=== PATIENT | male | born 1970 | race Caucasian/White ===

== ENCOUNTER 2022-10-19 23:10 | Inpatient (IN) ==
--- NOTE | 2022-10-19 23:50 | ED.PDOC ---
General ED Provider: Dr. ABRIL PENN Chief Complaint: Non-specific Complaint Stated Complaint: he notes cough and congestion and fever since yesterday Time Seen by Provider: 10/19/22 23:43 Mode of Arrival: Walk-In Information Source: Patient Exam Limitations: No limitations Primary Care Provider: JASON DEVRIES Nursing and Triage Documentation Reviewed and Agree: Yes Does patient meet sepsis criteria?: No System Inflammatory Response Syndrome: Not Applicable Sepsis Protocol: For patient's 13 years and over: Temp is 96.8 and below OR 101 and greater Pulse >90 BPM Resp >20/minute Acutely Altered Mental Status Are patient's symptoms suggestive of a new infection, such as: -Pneumonia -Skin, Soft Tissue -Endocarditis -UTI -Bone, Joint Infection -Implantable Device -Acute Abdominal Infection -Wound Infection -Meningitis -Blood Stream Catheter Infection -Unknown Respiratory Complaint Exam Respiratory Complaint/Exam Onset/Duration: 24hs Symptoms Are: Still present Timing: Intermittent Initial Severity: Mild Current Severity: Mild Location: Chest Character: Reports Non-productive cough Aggravating: Reports URI Alleviating: Reports None Associated Signs and Symptoms: Reports Fever, Chills, URI and Nasal congestion Home Oxygen Use: No Recent Stress Test: No Recent Echo/LV Function: No Current Antibiotic Use: No Current Asthma Medication Use: No Respiratory Distress: None Inadequate Respiratory Effort: No Dysphagia Present: No Stridor Present: No JVD Present: No Accessory Muscle Use: No Retractions: Not Present Diminished Breath Sounds: No Sinus Tenderness: None Grunting Respirations: No Kussmaul Respirations: No Differential Diagnoses: URI Review of Systems Review Of Systems Constitutional: Reports Chills and Fever Eyes: Reports No symptoms Ears, Nose, Mouth, Throat: Reports No symptoms Respiratory: Reports Cough Cardiac: Reports No symptoms GI: Reports No symptoms : Reports No symptoms Musculoskeletal: Reports No symptoms Skin: Reports No symptoms Neurological: Reports No symptoms Endocrine: Reports No symptoms Hematologic/Lymphatic: Reports No symptoms All Other Systems: Reviewed and Negative Physical Exam Physical Exam Appearance: Reports Well-appearing Ill-appearing: None Pain Distress: None Eyes: Reports KRISSY, EOMI and Conjunctiva clear ENT: Reports Ears normal, Nose normal and Oropharynx normal Neck: Supple Respiratory: Reports Airway patent, Breath sounds clear and Breath sounds equal Cardiovascular: Reports RRR, Pulses normal, No rub and No murmur GI/: Reports Soft, Nontender, No masses and Bowel sounds normal Musculoskeletal: Reports Normal strength, ROM intact, No edema and No calf tenderness Skin: Reports Warm, Dry and Normal color Neurological: Reports Sensation intact, Motor intact, Reflexes intact, Cranial nerves intact, Alert and Oriented Psychiatric: Reports Affect appropriate and Mood appropriate Interpretation Radiology Interpretation Radiology Interpretation By: Radiologist Radiology Results: Positive Exam Interpreted: CXR Critical Care Note Critical Care Note Total Critical Care Time (mins): 0 Course Course Hematology/Chemistry: 10/20/22 00:15 10/20/22 00:15 Orders, Labs, Meds: Lab Review 10/19/22 10/19/22 10/20/22 23:35 23:35 00:15 WBC 8.79 RBC 4.63 L Hgb 14.7 Hct 43.4 MCV 93.7 MCH 31.7 H MCHC 33.9 RDW Coeff of Emmy 13.1 Plt Count 187 Immature Gran % (Auto) 0.2 Neut % (Auto) 69.0 Lymph % (Auto) 20.3 Andrew % (Auto) 10.0 Eos % (Auto) 0.3 Baso % (Auto) 0.2 Neut # (Auto) 6.1 Lymph # (Auto) 1.8 Andrew # (Auto) 0.9 Eos # (Auto) 0.0 Baso # (Auto) 0.0 Immature Gran # (Auto) 0.0 Sodium Potassium Chloride Carbon Dioxide Anion Gap BUN Creatinine Estimated GFR (MDRD) BUN/Creatinine Ratio Glucose Lactic Acid Calcium Total Bilirubin AST ALT Alkaline Phosphatase Total Protein Albumin Globulin Albumin/Globulin Ratio Influ A Molecular Assay Positive by naat H Influ B Molecular Assay Negative by naat SARS CoV-2 RNA Rapid CHELSEA Negative 10/20/22 10/20/22 00:15 00:15 WBC RBC Hgb Hct MCV MCH MCHC RDW Coeff of Emmy Plt Count Immature Gran % (Auto) Neut % (Auto) Lymph % (Auto) Andrew % (Auto) Eos % (Auto) Baso % (Auto) Neut # (Auto) Lymph # (Auto) Andrew # (Auto) Eos # (Auto) Baso # (Auto) Immature Gran # (Auto) Sodium 139.4 Potassium 3.90 Chloride 105.2 Carbon Dioxide 29.0 Anion Gap 9.10 BUN 11.3 Creatinine 0.97 Estimated GFR (MDRD) 82.00 BUN/Creatinine Ratio 11.64 Glucose 115.8 H Lactic Acid 1.12 Calcium 9.08 Total Bilirubin 0.44 AST 28.1 ALT 21.5 Alkaline Phosphatase 84.1 Total Protein 7.52 Albumin 4.53 Globulin 2.99 Albumin/Globulin Ratio 1.51 Influ A Molecular Assay Influ B Molecular Assay SARS CoV-2 RNA Rapid CHELSEA Orders Category Date Time Status ED IV/MEDIPORT/POWERPORT .ONCE EMERGENCY 10/20/22 00:21 Active BLOOD CULTURE (ED ONLY) Stat LAB 10/20/22 00:15 Received CBC W/ AUTO DIFF Stat LAB 10/20/22 00:15 Completed COMPREHENSIVE METABOLIC PANEL Stat LAB 10/20/22 00:15 Completed LACTIC ACID Stat LAB 10/20/22 00:15 Completed MOLECULAR FLU A & B [FLU A/B MOLECULAR] Stat LAB 10/19/22 23:35 Completed PROCALCITONIN Stat LAB 10/20/22 00:15 Received SARS COV-2 RNA RAPID CHELSEA Stat LAB 10/19/22 23:35 Completed 0.9 % Sodium Chloride [Saline Flush] MEDS 10/20/22 00:21 Active 1 syr IVF PRN PRN Ceftriaxone/D5w 1 gm Premix [Rocephin 1 gm/50 ml D5w] MEDS 10/20/22 00:22 Active 1 gm in 50 ml IV ONCE Oseltamivir Phosphate Capsule [Tamiflu Capsule] MEDS 10/20/22 00:27 Disc ontinued 75 mg PO ONCE ONE Sodium Chloride 0.9% [Sodium Chloride] 500 ml MEDS 10/20/22 00:21 Active IV 70 mls/hr CXR [CHEST, 2 VIEWS PA & LAT] Stat RADS 10/19/22 23:43 Completed Medications Generic Name Dose Route Start Last Admin Trade Name Freq PRN Reason Stop Dose Admin Sodium Chloride 500 mls @ 70 mls/hr 10/20/22 00:21 10/20/22 00:41 Sodium Chloride IV 10/20/22 07:29 70 mls/hr .Q7H9M STA Administration CEFTRIAXONE/D5W 1 GM PREMIX 1 gm in 50 mls @ 75 mls/hr 10/20/22 00:22 10/20/22 00:36 Rocephin 1 Gm/50 Ml D5w IV 10/20/22 01:01 75 mls/hr ONCE STA Administration Sodium Chloride 1 syr 10/20/22 00:21 0.9% Sodium Chloride 10 Ml Disp.Syrin IVF PRN PRN To flush IV Discontinued Medications Generic Name Dose Route Start Last Admin Trade Name Freq PRN Reason Stop Dose Admin Oseltamivir Phosphate 75 mg 10/20/22 00:27 10/20/22 00:40 Oseltamivir Phosphate 75 Mg Capsule PO 10/20/22 00:28 75 mg ONCE ONE Administration Vital Signs: Temp Pulse Resp BP Pulse Ox 10/19/22 23:11 100.2 F 105 H 20 138/80 96 Discharge Plan Discharge Patient Disposition: ADMITTED INPATIENT Discharge Problem: Community acquired bacterial pneumonia, Influenza A Prescriptions: No Action Unobtainable Did you review [place] TATTOO ARTIST?: Not Applicable ED Provider: ABRIL MERCHANT Condition: Good Physician Progress Note: []
[2022-10-19 23:51] LABS: MOLECULAR FLU A POSITIVE BY NAAT (NEGATIVE)
[2022-10-19 23:53] LABS: MOLECULAR FLU B NEGATIVE BY NAAT (NEGATIVE)
--- NOTE | 2022-10-20 00:03 | DI ---
EXAM: PA and lateral chest. HISTORY: Cough. Fever. FINDINGS: The bones are unremarkable. The cardiac silhouette is enlarged. The pulmonary vasculatur e is within normal limits. The costophrenic angles are clear. There are left lower lobe infiltrates , consistent with pneumonia. Impression: Left lower lobe pneumonia. Cardiomegaly.
[2022-10-20 00:09] LABS: SARS COV-2 RNA RAPID NAAT NEGATIVE (NEGATIVE)
[2022-10-20] MEDS ORDERED: SODIUM CHLORIDE 500 ML IV STA (00:21)
[2022-10-20] MEDS ORDERED: ROCEPHIN 1 GM/50 ML D5W 1 GM/50 ML BAG IV STA (00:22)
[2022-10-20 00:23] LABS: BASOPHILS % (AUTO) 0.2 % (0.0-3.0); EOSINOPHILS % (AUTO) 0.3 % (0.0-7.0); HEMATOCRIT 43.4 % (42.0-52.0); HEMOGLOBIN 14.7 g/dl (14.0-18.0); IMMATURE GRANULOCYTE % (AUTO) 0.2 % (0.0-5.0); LYMPHOCYTES # (AUTO) 1.8 K/uL (0.60-3.4); LYMPHOCYTES % (AUTO) 20.3 (10.0-50.0); MEAN CORPUSCULAR HEMOGLOBIN 31.7 pg (27.0-31.0); MEAN CORPUSCULAR HGB CONC 33.9 (31.8-35.4); MEAN CORPUSCULAR VOLUME 93.7 fl (80.0-94.0); MONOCYTES # (AUTO) 0.9 K/uL (0.4-2.0); NEUTROPHILS # (AUTO) 6.1 K/ul (2.0-6.9); PLATELET COUNT 187 10^3/uL (140-440); RDW COEFFICIENT OF VARIATION 13.1 % (11.6-14.8); RED BLOOD COUNT 4.63 10^6/ul (4.70-6.10); WHITE BLOOD COUNT 8.79 K/ul (4.2-10.2)
[2022-10-20] MEDS ORDERED: TAMIFLU CAPSULE PO ONE (00:27)
[2022-10-20 00:35] LABS: ALANINE AMINOTRANSFERASE 21.5 U/L (0-50); ALBUMIN 4.53 g/dL (3.5-5.0); ALKALINE PHOSPHATASE 84.1 U/L (38-126); ASPARTATE AMINO TRANSFERASE 28.1 U/L (17-59); BILIRUBIN,TOTAL 0.44 mg/dL (0.2-1.3); BLOOD UREA NITROGEN 11.3 mg/dL (9-20); CALCIUM 9.08 mg/dL (8.4-10.2); CHLORIDE 105.2 mmol/L (98-107); CREATININE 0.97 mg/dL (0.60-1.10); GLUCOSE 115.8 mg/dL (74-106); POTASSIUM 3.9 mmol/L (3.5-5.1); SODIUM 139.4 mmol/L (134.5-145); TOTAL PROTEIN 7.52 g/dL (6.3-8.2)
[2022-10-20] MEDS ORDERED: ZOFRAN 4 MG/2 ML IVP PRN (01:03)
[2022-10-20] MEDS ORDERED: TYLENOL PO PRN (01:05)
--- NOTE | 2022-10-20 01:15 | PCM ---
Chief Complaint Chief Complaint: tanya been stick for 2 days History of Present Illness History of Present Illness: Mr Marin is noting to present to the er with cough, sob, congestion, fever,chills . He has had flu vaccine per his history. Review of Systems Constitutional: Reports Fever, Chills, Fatigue and Loss of appetite Eyes: Reports No symptoms Ears: Reports No symptoms Nose: Reports Congestion Throat: Reports No symptoms Mouth: Reports No symptoms Respiratory: Reports Cough and Shortness of air Cardiovascular: Reports No symptoms Gastrointestinal: Reports No symptoms Genitourinary: Reports No symptoms Neurological: Reports No symptoms Musculoskeletal: Reports No symptoms Skin: Reports No symptoms Immunology: Reports No symptoms Hematology: Reports No symptoms Endocrine: Reports No symptoms Psychiatric: Reports No symptoms Habits: Denies Tobacco use, Substance use, Alcohol use or Other Allergies Allergies Allergy/AdvReac Type Severity Reaction Status Date / Time No Known Allergies Allergy Verified 10/20/22 01:12 Medications Medications: Medications Generic Name Dose Route Start Last Admin Trade Name Freq PRN Reason Stop Dose Admin Acetaminophen 650 mg 10/20/22 01:05 Acetaminophen 325 Mg Tablet PO Q4HR PRN Fever >101 Albuterol Sulfate mg 10/20/22 06:00 Albuterol Sulfate 0.042% Vial.Neb NEB RTQ6H ALYCE Enoxaparin Sodium 40 mg 10/20/22 09:00 Enoxaparin Sodium 40 Mg/0.4 Ml Syr SUBCUT DAILY ALYCE Sodium Chloride 500 mls @ 70 mls/hr 10/20/22 00:21 10/20/22 00:41 Sodium Chloride IV 10/20/22 07:29 70 mls/hr .Q7H9M STA Administration CEFTRIAXONE/D5W 1 GM PREMIX 1 gm in 50 mls @ 75 mls/hr 10/20/22 09:00 Rocephin 1 Gm/50 Ml D5w IV 10/23/22 08:59 DAILY ALYCE Doxycycline Hyclate 100 mg/ 100 mls @ 50 mls/hr 10/20/22 09:00 Sodium Chloride IV 10/23/22 08:59 Q12HR ALYCE Ondansetron HCl 4 mg 10/20/22 01:03 Ondansetron Hcl/Pf 4 Mg/2 Ml Sdv IVP Q4HR PRN Nausea / Vomiting Oseltamivir Phosphate 75 mg 10/20/22 09:00 Oseltamivir Phosphate 75 Mg Capsule PO BID ALYCE Sodium Chloride 1 syr 10/20/22 00:21 0.9% Sodium Chloride 10 Ml Disp.Syrin IVF PRN PRN To flush IV Body Composition Height: 5 ft 8 in Weight: 190 lb Body Mass Index (BMI): 28.8 Vital Signs Temperature: 100.2 F Pulse Rate: 85 Respiratory Rate: 24 Blood Pressure: 125/75 O2 Sat by Pulse Oximetry: 96 Physical Examination Appearance: Reports Well-appearing Ill-appearing: Mild Pain Distress: None Eyes: Reports KRISSY, EOMI and Conjunctiva clear ENT: Reports Ears normal, Nose normal and Oropharynx normal Neck: Supple Respiratory: Reports Airway patent, Breath sounds equal, Respirations nonlabored, Crackles and Rhonchi Cardiovascular: Reports RRR, Pulses normal, No rub and No murmur GI/: Reports Soft, Nontender, No masses and Bowel sounds normal Musculoskeletal: Reports Normal strength, ROM intact, No edema and No calf tenderness Skin: Reports Warm, Dry and Normal color Neurological: Reports Sensation intact, Motor intact, Cranial nerves intact, Alert and Oriented Psychiatric: Reports Affect appropriate and Mood appropriate Lab/Tests/Diagnostic Imaging Lab/Tests/Diagnostic Imaging: Lab Review 10/19/22 10/19/22 10/20/22 23:35 23:35 00:15 WBC 8.79 RBC 4.63 L Hgb 14.7 Hct 43.4 MCV 93.7 MCH 31.7 H MCHC 33.9 RDW Coeff of Emmy 13.1 Plt Count 187 Immature Gran % (Auto) 0.2 Neut % (Auto) 69.0 Lymph % (Auto) 20.3 Thomas % (Auto) 10.0 Eos % (Auto) 0.3 Baso % (Auto) 0.2 Neut # (Auto) 6.1 Lymph # (Auto) 1.8 Thomas # (Auto) 0.9 Eos # (Auto) 0.0 Baso # (Auto) 0.0 Immature Gran # (Auto) 0.0 Sodium Potassium Chloride Carbon Dioxide Anion Gap BUN Creatinine Estimated GFR (MDRD) BUN/Creatinine Ratio Glucose Lactic Acid Calcium Total Bilirubin AST ALT Alkaline Phosphatase Total Protein Albumin Globulin Albumin/Globulin Ratio Procalcitonin Influ A Molecular Assay Positive by naat H Influ B Molecular Assay Negative by naat SARS CoV-2 RNA Rapid CHELSEA Negative 10/20/22 10/20/22 10/20/22 00:15 00:15 00:15 WBC RBC Hgb Hct MCV MCH MCHC RDW Coeff of Emmy Plt Count Immature Gran % (Auto) Neut % (Auto) Lymph % (Auto) Thomas % (Auto) Eos % (Auto) Baso % (Auto) Neut # (Auto) Lymph # (Auto) Thomas # (Auto) Eos # (Auto) Baso # (Auto) Immature Gran # (Auto) Sodium 139.4 Potassium 3.90 Chloride 105.2 Carbon Dioxide 29.0 Anion Gap 9.10 BUN 11.3 Creatinine 0.97 Estimated GFR (MDRD) 82.00 BUN/Creatinine Ratio 11.64 Glucose 115.8 H Lactic Acid 1.12 Calcium 9.08 Total Bilirubin 0.44 AST 28.1 ALT 21.5 Alkaline Phosphatase 84.1 Total Protein 7.52 Albumin 4.53 Globulin 2.99 Albumin/Globulin Ratio 1.51 Procalcitonin < 0.05 Influ A Molecular Assay Influ B Molecular Assay SARS CoV-2 RNA Rapid CHELSEA Orders Category Date Time Status ADMIT PATIENT INPATIENT .TO [facility] (MONITORED BED) ADMISSION 10/20/22 00:58 Active EKG-(ED ONLY) Stat CARDIO 10/20/22 00:58 Ordered OXYGEN Routine CARDIO 10/20/22 00:59 Ordered ACTIVITY .Up ad Tracey CARE 10/20/22 00:58 Active INTAKE & OUTPUT Q8HR CARE 10/20/22 00:58 Active IP: INSERT SALINE LOCK ONCE CARE 10/20/22 00:58 Active TELEMETRY MONITORING TELE CARE 10/20/22 00:58 Active VITAL SIGNS Q8HR CARE 10/20/22 00:58 Active REGULAR DIET DIETARY 10/20/22 Breakfast Ordered ED IV/MEDIPORT/POWERPORT .ONCE EMERGENCY 10/20/22 00:21 Active BLOOD CULTURE (ED ONLY) Stat LAB 10/20/22 00:15 Received CBC W/ AUTO DIFF DAILY@0600 LAB 10/20/22 06:00 Ordered CBC W/ AUTO DIFF DAILY@0600 LAB 10/21/22 06:00 Ordered CBC W/ AUTO DIFF Stat LAB 10/20/22 00:15 Completed COMPREHENSIVE METABOLIC PANEL DAILY@0600 LAB 10/20/22 06:00 Ordered COMPREHENSIVE METABOLIC PANEL DAILY@0600 LAB 10/21/22 06:00 Ordered COMPREHENSIVE METABOLIC PANEL Stat LAB 10/20/22 00:15 Completed LACTIC ACID Stat LAB 10/20/22 00:15 Completed MOLECULAR FLU A & B [FLU A/B MOLECULAR] Stat LAB 10/19/22 23:35 Completed PROCALCITONIN Stat LAB 10/20/22 00:15 Completed SARS COV-2 RNA RAPID CHELSEA Stat LAB 10/19/22 23:35 Completed 0.9 % Sodium Chloride [Saline Flush] MEDS 10/20/22 00:21 Active 1 syr IVF PRN PRN Acetaminophen [Tylenol] MEDS 10/20/22 01:05 Ordered 650 mg PO Q4HR PRN Albuterol Sulfate 0.042% Neb [Albuterol 0.042% Neb] MEDS 10/20/22 06:00 Ordered DOSE mg NEB RTQ6H Ceftriaxone/D5w 1 gm Premix [Rocephin 1 gm/50 ml D5w] MEDS 10/20/22 09:00 Ordered 1 gm in 50 ml IV DAILY Ceftriaxone/D5w 1 gm Premix [Rocephin 1 gm/50 ml D5w] MEDS 10/20/22 00:22 Discontinued 1 gm in 50 ml IV ONCE Doxycycline Hyclate Inj [Doxy-100] 100 mg MEDS 10/20/22 09:00 Ordered 0.9 % Sodium Chloride [Sodium Chloride 100Ml] 100 ml IV Q12HR Enoxaparin Sodium [Lovenox] MEDS 10/20/22 09:00 Ordered 40 mg SUBCUT DAILY Ondansetron HCl/Pf [Zofran 4 mg/2 ml] MEDS 10/20/22 01:03 Ordered 4 mg IVP Q4HR PRN Oseltamivir Phosphate Capsule [Tamiflu Capsule] MEDS 10/20/22 09:00 Ordered 75 mg PO BID Oseltamivir Phosphate Capsule [Tamiflu Capsule] MEDS 10/20/22 00:27 Discontinued 75 mg PO ONCE ONE Sodium Chloride 0.9% [Sodium Chloride] 500 ml MEDS 10/20/22 00:21 Active IV 70 mls/hr RESUSCITATION STATUS Routine OTHERS 10/20/22 00:58 Ordered CXR [CHEST, 2 VIEWS PA & LAT] Stat RADS 10/19/22 23:43 Completed Medications Generic Name Dose Route Start Last Admin Trade Name Freq PRN Reason Stop Dose Admin Acetaminophen 650 mg 10/20/22 01:05 Acetaminophen 325 Mg Tablet PO Q4HR PRN Fever >101 Albuterol Sulfate mg 10/20/22 06:00 Albuterol Sulfate 0.042% Vial.Neb NEB RTQ6H [facility] Enoxaparin Sodium 40 mg 10/20/22 09:00 Enoxaparin Sodium 40 Mg/0.4 Ml Syr SUBCUT DAILY [facility] Sodium Chloride 500 mls @ 70 mls/hr 10/20/22 00:21 10/20/22 00:41 Sodium Chloride IV 10/20/22 07:29 70 mls/hr .Q7H9M STA Administration CEFTRIAXONE/D5W 1 GM PREMIX 1 gm in 50 mls @ 75 mls/hr 10/20/22 09:00 Rocephin 1 Gm/50 Ml D5w IV 10/23/22 08:59 DAILY ALYCE Doxycycline Hyclate 100 mg/ 100 mls @ 50 mls/hr 10/20/22 09:00 Sodium Chloride IV 10/23/22 08:59 Q12HR ALYCE Ondansetron HCl 4 mg 10/20/22 01:03 Ondansetron Hcl/Pf 4 Mg/2 Ml Sdv IVP Q4HR PRN Nausea / Vomiting Oseltamivir Phosphate 75 mg 10/20/22 09:00 Oseltamivir Phosphate 75 Mg Capsule PO BID ALYCE Sodium Chloride 1 syr 10/20/22 00:21 0.9% Sodium Chloride 10 Ml Disp.Syrin IVF PRN PRN To flush IV Discontinued Medications Generic Name Dose Route Start Last Admin Trade Name Freq PRN Reason Stop Dose Admin CEFTRIAXONE/D5W 1 GM PREMIX 1 gm in 50 mls @ 75 mls/hr 10/20/22 00:22 10/20/22 00:36 Rocephin 1 Gm/50 Ml D5w IV 10/20/22 01:01 75 mls/hr ONCE STA Administration Oseltamivir Phosphate 75 mg 10/20/22 00:27 10/20/22 00:40 Oseltamivir Phosphate 75 Mg Capsule PO 10/20/22 00:28 75 mg ONCE ONE Administration Assessment (1) Community acquired bacterial pneumonia: Status: Acute Code(s): J15.9 - Unspecified bacterial pneumonia SNOMED Code(s): 800348158 (2) Influenza A: Status: Acute Code(s): J10.1 - Influenza due to other identified influenza virus with other respiratory manifestations SNOMED Code(s): 872792388 Plan Plan: will start tamiflu, start rocephin, doxycycline, neb tx, give supplemental oxygen as oximetry is "soft" at 90-91%--iv fluids to help with iv hydration, lovenox for dvt prophylaxis, and admit to hospitalist service.
[2022-10-20 02:38] VITALS: BMI 28.3
[2022-10-20] MEDS: ALBUTEROL 0.042% NEB NEB SCH ×4 (05:30→23:02)
[2022-10-20 05:39] LABS: BASOPHILS % (AUTO) 0.2 % (0.0-3.0); EOSINOPHILS % (AUTO) 0.5 % (0.0-7.0); HEMATOCRIT 44.3 % (42.0-52.0); HEMOGLOBIN 14.8 g/dl (14.0-18.0); IMMATURE GRANULOCYTE % (AUTO) 0.5 % (0.0-5.0); LYMPHOCYTES # (AUTO) 2.2 K/uL (0.60-3.4); LYMPHOCYTES % (AUTO) 25.4 (10.0-50.0); MEAN CORPUSCULAR HEMOGLOBIN 31.4 pg (27.0-31.0); MEAN CORPUSCULAR HGB CONC 33.4 (31.8-35.4); MEAN CORPUSCULAR VOLUME 93.9 fl (80.0-94.0); MONOCYTES # (AUTO) 0.9 K/uL (0.4-2.0); MONOCYTES % (AUTO) 9.7 (0-10); NEUTROPHILS # (AUTO) 5.6 K/ul (2.0-6.9); NEUTROPHILS % (AUTO) 63.7 % (42.2-75.2); PLATELET COUNT 197 10^3/uL (140-440); RDW COEFFICIENT OF VARIATION 13.2 % (11.6-14.8); RED BLOOD COUNT 4.72 10^6/ul (4.70-6.10); WHITE BLOOD COUNT 8.75 K/ul (4.2-10.2)
[2022-10-20 05:54] LABS: ALANINE AMINOTRANSFERASE 21.7 U/L (0-50); ALBUMIN 4.65 g/dL (3.5-5.0); ALKALINE PHOSPHATASE 89.6 U/L (38-126); ASPARTATE AMINO TRANSFERASE 35.5 U/L (17-59); BILIRUBIN,TOTAL 0.49 mg/dL (0.2-1.3); BLOOD UREA NITROGEN 11.7 mg/dL (9-20); CALCIUM 8.96 mg/dL (8.4-10.2); CARBON DIOXIDE 27.8 mmol/L (22-30.0); CREATININE 0.95 mg/dL (0.60-1.10); POTASSIUM 4.02 mmol/L (3.5-5.1); SODIUM 139.1 mmol/L (134.5-145); TOTAL PROTEIN 7.76 g/dL (6.3-8.2)
[2022-10-20] MEDS: DOXY-100 100 MG in SODIUM CHLORIDE 100ML 100 ML IV SCH ×2 (08:22→20:29)
[2022-10-20] MEDS: TAMIFLU CAPSULE PO SCH ×2 (08:25→20:29)
[2022-10-20] MEDS: LOVENOX SUBCUT SCH (08:26)
[2022-10-20] MEDS: DEXTROSE 5%-NS IV SOLUTION 1,000 ML IV SCH ×3 (10:09→23:47)
[2022-10-20] MEDS: ROCEPHIN 1 GM/50 ML D5W 1 GM/50 ML BAG IV SCH (10:54)
--- NOTE | 2022-10-20 13:07 | PCM.PROG ---
Date Seen by Provider: 10/20/22 Time Seen by Provider: 08:45 Subjective: Patient still feeling poorly. PO intake poor. Objective: Vitals: T=98.6 F, P=88, R=18, FT=801/68, SPO2=97 Appears acutely ill. Alert and in NAD. No respiratory distress. HEENT: [] Neck: [] Lungs: [] Clear. BS equal. CVS: []RRR Abdomen: []Soft, nontender, nondistended. Extremities: [] Neurological: [] Skin: [] Lab/Tests/Diagnostic Imaging: [] (1) Community acquired bacterial pneumonia: Status: Acute Code(s): J15.9 - Unspecified bacterial pneumonia SNOMED Code(s): 159628135 (2) Influenza A: Status: Acute Code(s): J10.1 - Influenza due to other identified influenza virus with other respiratory manifestations SNOMED Code(s): 934758445 Plan: IV fluid hydration. Continue tamiflu and antibiotics.
[2022-10-21] MEDS: ALBUTEROL 0.042% NEB NEB SCH ×2 (04:45→11:11)
[2022-10-21 05:06] LABS: BASOPHILS % (AUTO) 0.1 % (0.0-3.0); EOSINOPHILS % (AUTO) 0.5 % (0.0-7.0); HEMOGLOBIN 14.2 g/dl (14.0-18.0); IMMATURE GRANULOCYTE % (AUTO) 0.1 % (0.0-5.0); LYMPHOCYTES # (AUTO) 2.7 K/uL (0.60-3.4); LYMPHOCYTES % (AUTO) 32.4 (10.0-50.0); MEAN CORPUSCULAR HEMOGLOBIN 31.3 pg (27.0-31.0); MEAN CORPUSCULAR VOLUME 94.7 fl (80.0-94.0); MONOCYTES # (AUTO) 0.6 K/uL (0.4-2.0); MONOCYTES % (AUTO) 7.7 (0-10); NEUTROPHILS # (AUTO) 4.9 K/ul (2.0-6.9); NEUTROPHILS % (AUTO) 59.2 % (42.2-75.2); PLATELET COUNT 178 10^3/uL (140-440); RDW COEFFICIENT OF VARIATION 13.3 % (11.6-14.8); RED BLOOD COUNT 4.54 10^6/ul (4.70-6.10); WHITE BLOOD COUNT 8.27 K/ul (4.2-10.2)
[2022-10-21 05:23] LABS: ALANINE AMINOTRANSFERASE 20.1 U/L (0-50); ALBUMIN 4.05 g/dL (3.5-5.0); ALKALINE PHOSPHATASE 76.2 U/L (38-126); ASPARTATE AMINO TRANSFERASE 29.2 U/L (17-59); BILIRUBIN,TOTAL 0.49 mg/dL (0.2-1.3); BLOOD UREA NITROGEN 9.6 mg/dL (9-20); CALCIUM 8.29 mg/dL (8.4-10.2); CARBON DIOXIDE 29.5 mmol/L (22-30.0); CHLORIDE 107.4 mmol/L (98-107); CREATININE 0.9 mg/dL (0.60-1.10); GLUCOSE 114.4 mg/dL (74-106); SODIUM 140.2 mmol/L (134.5-145); TOTAL PROTEIN 6.92 g/dL (6.3-8.2)
[2022-10-21 05:30] LABS: POTASSIUM 3.89 mmol/L (3.5-5.1)
[2022-10-21] MEDS: DEXTROSE 5%-NS IV SOLUTION 1,000 ML IV SCH (05:35)
[2022-10-21 05:40] VITALS: BP 125/76; TEMP 98.5
[2022-10-21] MEDS: TAMIFLU CAPSULE PO SCH (09:15)
[2022-10-21] MEDS: ROCEPHIN 1 GM/50 ML D5W 1 GM/50 ML BAG IV SCH (09:15)
[2022-10-21] MEDS: LOVENOX SUBCUT SCH ×2 (09:15→09:32)
--- NOTE | 2022-10-21 10:41 | PCM.DC ---
Final Diagnosis: dx. influenza A and pneumonia and copd Physical Exam Appearance: Well-appearing Pain Distress: None Eyes: Conjunctiva clear ENT: Oropharynx normal Neck: Supple Respiratory: Airway patent, Breath sounds clear and Breath sounds equal Cardiovascular: RRR GI/: Nontender Musculoskeletal: ROM intact Skin: Warm and Dry Neurological: Alert and Oriented Psychiatric: Affect appropriate (1) Community acquired bacterial pneumonia: Status: Acute Code(s): J15.9 - Unspecified bacterial pneumonia SNOMED Code(s): 482406279 (2) Influenza A: Status: Acute Code(s): J10.1 - Influenza due to other identified influenza virus with other respiratory manifestations SNOMED Code(s): 312235094 Reason for Hospitalization: pneumonia Prognosis/Condition at Discharge: fair Medications at Discharge: medrol, augmentin, albuterol inhaler Lab/Diagnostics: wbc 8.2 Education Provided to Patient and Family: inhaler instructions Follow-ups: see your doctor, or clinic doctor, return if worse Discharge Disposition: Home Hospital Course: not oxygen depentdent, improved Plan: discharge home 40min spent on discharge plan
[2022-10-21] MEDS: DOXY-100 100 MG in SODIUM CHLORIDE 100ML 100 ML IV SCH (11:13)
== END 2022-10-21 12:25 | disposition home or self-care (01) | DRG 195 ==
LOC: ED 23:10 → MEDSURG A 10-20 01:07
PROVIDERS: ADMIT Family Medicine; ATTEND Emergency Medicine Emergency Medical Services
DX: Z20.822 Contact with and (suspected) exposure to COVID-19; J15.9 Unspecified bacterial pneumonia; J10.1 Influenza due to other identified influenza virus with other respiratory manifestations